=== PATIENT | male | born 2000 | race Caucasian/White ===

== ENCOUNTER 2023-06-21 18:23 | Emergency (ER) | payer OTHER, SELFPAY ==
[2023-06-21 18:42] VITALS: BP 121/68; PULSE 95; TEMP 37.1; O2SAT 100; BMI 27.7
--- NOTE | 2023-06-21 19:38 | CT_ITS ---
The [address] [address] Patient Name: AURE MCCARTHY MRN: [id number] date: 2000 Sex: M Assigned Patient Location: ER Current Patient Location: Accession/Order Number: [id number] Exam Date: 06/21/2023 20:30 Report Date: 06/21/2023 21:19 At the request of: EUGENE SIMPSON Procedure: CT soft tissue neck w con EXAM: CT soft tissue neck w con HISTORY: peritonsillar abscess COMPARISON: None. TECHNIQUE: IV contrast enhanced CT imaging of the neck. This CT exam was performed using one or more of the following dose reduction techniques: Automated exposure control, adjustment of the mA and/or KV according to patient size, or use of iterative reconstruction technique. Unless otherwise stated, incidental findings do not require dedicated follow-up imaging. FINDINGS: There is asymmetric enlargement and hyperemia of the right palatine tonsil with a 12 mm round peritonsillar abscess. There is mass effect upon the airway at this level but the airway remains patent. The submandibular and parotid glands are symmetric bilaterally. The thyroid is homogeneous. Except for a small subcentimeter nodule in the left lobe measuring 7 mm and one in the lateral right lobe measuring 5 mm. The lung apices are clear. The bones are intact without acute abnormality. CT/CT soft tissue neck w con IMPRESSION: 1. Acute right palatine tonsillitis with a small peritonsillar abscess. Electronically authenticated by: THERESE JOHNSON Date: 06/21/2023 21:19
--- NOTE | 2023-06-21 19:40 | ED_ITS ---
HPI HPI - General Adult General Chief complaint: Upper Respiratory Infection Stated complaint: SORE THROAT, POSS ABCESS Time Seen by Provider: 06/21/23 19:22 Source: patient Mode of arrival: walk-in History of Present Illness HPI narrative: Patient is a 23-year-old male with no other major medical history presents to the ER for possible peritonsillar abscess. Patient states he had a sore throat last week which improved but in the last 2 days has become more painful. He reports swelling and pain on the right side of the jaw and throat. He is able to drink fluids today, he denies any shortness of breath. He has had no fevers or vomiting. He has not eaten anything today due to pain. He went to urgent care prior to arrival and was instructed to come to the ER to rule out a peritonsillar abscess. No medications given. He states he does have a history of recurrent strep infections/tonsillitis. No previous surgeries for his tonsils. Related Data Previous Rx's ?Medication ?Instructions ?Recorded clindamycin HCl 150 mg capsule 300 mg (2 x 150 mg) PO Q6H 10 days 06/21/23 #80 caps dexamethasone 4 mg tablet 4 mg PO BID 5 days #10 tabs 06/21/23 hydrocodone 5 mg-acetaminophen 325 1 tab PO Q6H PRN pain 2 days #8 06/21/23 mg tablet tabs metronidazole 500 mg tablet 500 mg PO Q12H 10 days #20 tabs 06/21/23 ondansetron 4 mg disintegrating 4 mg PO Q6H PRN nausea and 06/21/23 tablet vomiting #12 tabs Allergies Allergy/AdvReac Type Severity Reaction Status Date / Time No Known Drug Allergies Allergy Verified 06/21/23 18:48 Opioid HPI Opioid Management Most Recent Opioid Data: Last ED Pain Assessment 06/21/23 20:04 Review of Systems ROS Constitutional Denies: fever or chills Ears, nose, mouth, and throat Reports: throat pain, throat swelling and difficulty swallowing; Denies: nasal congestion Cardiovascular Denies: chest pain Respiratory Denies: shortness of breath or cough Gastrointestinal Denies: abdominal pain, nausea or vomiting Musculoskeletal Denies: back pain Integumentary/Breast Denies: rash Hematologic/Lymphatic Denies: easy bruising or easy bleeding Exam Narrative Exam Narrative: Gen.: Awake, alert, in no distress Head: Normocephalic, atraumatic ENT: Moist mucous membranes, Uvula is midline with airway widely open and patent. Right tonsil is asymmetrically swollen, no exudate noted. No trismus or drooling. Clear speech. Respiratory: No respiratory distress, lungs clear bilaterally; No wheezing or rhonchi Cardio: Regular rate and rhythm Extremities: Moves extremities equally Psych: Normal mood and affect Neuro: No focal neuro deficit Skin: Warm, dry, intact Constitutional Vital Signs, click to edit/add: Last Vital Signs Temp 98.8 F 06/21/23 18:42 Pulse 64 06/21/23 21:51 Resp 16 06/21/23 21:51 BP 113/68 06/21/23 21:51 Pulse Ox 100 06/21/23 21:51 O2 Del Method Room Air 06/21/23 21:51 Course Vital Signs Vital signs: Vital Signs Temperature 98.8 F 06/21/23 18:42 Pulse Rate 95 H 06/21/23 18:42 Respiratory Rate 16 06/21/23 18:42 Blood Pressure 121/68 06/21/23 18:42 Pulse Oximetry 100 06/21/23 18:42 Oxygen Delivery Method Room Air 06/21/23 18:42 Temperature 98.8 F 06/21/23 18:42 Pulse Rate 64 06/21/23 21:51 Respiratory Rate 06/21/23 21:51 Blood Pressure 113/68 06/21/23 21:51 Pulse Oximetry 100 06/21/23 21:51 Oxygen Delivery Method Room Air 06/21/23 21:51 Medical Decision Making MDM Narrative Medical decision making narrative: IV was established, labs drawn and the patient has mild leukocytosis and a strep positive. He was treated with IV clindamycin, IV Decadron with improvement and on reevaluation by attending physician, patient reports that the swelling in the right tonsil has gone down, he is speaking and breathing easily with airway widely open and patent, uvula continues to be midline. CT of The soft tissue of the neck shows the patient has a 1.2 cm right peritonsillar abscess. I discussed this with Dr. Rinaldi for ENT in [place], he will see the patient as soon as possible in the office, patient was instructed to call the office tomorrow morning. Patient will be placed on clindamycin and Flagyl was added at Dr. Rinaldi request. Decadron, clindamycin, Flagyl, [place] given for home. Any ruiz is resting comfortably and eager for discharge on reevaluation. Return to the ER if symptoms change or worsen. Medical Records Medical records reviewed: Yes I reviewed the patient's medical records Lab Data Lab results reviewed: Yes I reviewed the patient's lab results Labs: Lab Results 06/21/23 06/21/23 Range/Units 19:46 19:50 WBC 14.1 H (4.0-11.0) 10^3/uL RBC 4.76 (4.70-6.10) 10^6/uL Hgb 13.4 L (14.0-18.0) g/dL Hct 40.8 L (42.0-54.0) % MCV 85.7 (80.0-94.0) fL MCH 28.2 (25.9-34.0) pg MCHC 32.8 (29.9-35.2) g/dL RDW 12.3 (11.0-15.0) % Plt Count 317 (150-450) 10^3/uL MPV 10.1 (9.5-13.5) fL Neut % (Auto) 77.9 H (43.0-75.0) % Lymph % (Auto) 15.0 L (20.5-60.0) % [place] % (Auto) 5.8 (1.7-12.0) % Eos % (Auto) 0.6 L (0.9-7.0) % Baso % (Auto) 0.4 (0.2-2.0) % Neut # (Auto) 11.0 H (1.4-6.5) 10^3/uL Lymph # (Auto) 2.1 (1.2-3.8) 10^3/uL [place] # (Auto) 0.8 (0.3-0.8) 10^3/uL Eos # (Auto) 0.1 (0.0-0.7) 10^3/uL Baso # (Auto) 0.1 (0.0-0.1) 10^3/uL Abs Immat Gran (auto) 0.04 H (0.00-0.03) 10^3/uL Imm/Tot Granulo (auto) 0.3 (0.0-0.5) % Sodium 139 (136-145) mmol/L Potassium 3.6 (3.5-5.1) mmol/L Chloride 102 (98-107) mmol/L Carbon Dioxide 31.0 (21.0-32.0) mmol/L Anion Gap 9.6 BUN 17.0 (7.0-18.0) mg/dL Creatinine 1.19 (0.70-1.30) mg/dL Est GFR ( Amer) >60 (>=60) Est GFR (Non-Af Amer) >60 (>=60) BUN/Creatinine Ratio 14.3 Glucose 86 (74-106) mg/dL Calcium 8.8 (8.5-10.1) mg/dL Monoscreen Negative (NEGATIVE) Streptococcus Screen Positive A Imaging Data CT scan - head: Attestation: I have reviewed the pertinent imaging results. Radiologist's impression: ITS Impressions Soft Tissue Neck CT 06/21/23 19:38 IMPRESSION: 1. Acute right palatine tonsillitis with a small peritonsillar abscess. Electronically authenticated by: THERESE JOHNSON Date: 06/21/2023 21:19 Discharge Plan Discharge Stand Alone Forms: Portal Instructions Chief Complaint: Upper Respiratory Infection Clinical Impression: Peritonsillar abscess Patient Disposition: Home, Self-Care Time of Disposition Decision: 22:10 Condition: Good Prescriptions / Home Meds: New hydrocodone-acetaminophen 5-325 mg tablet 1 tab PO Q6H PRN (Reason: pain) 2 Days Qty: 8 0RF Rx Instructions: DX: J36 clindamycin HCl 150 mg capsule 300 mg PO Q6H 10 Days Qty: 80 0RF metronidazole 500 mg tablet 500 mg PO Q12H 10 Days Qty: 20 0RF dexamethasone 4 mg tablet 4 mg PO BID 5 Days Qty: 10 0RF ondansetron 4 mg tablet,disintegrating 4 mg PO Q6H PRN (Reason: nausea and vomiting) Qty: 12 0RF Print Language: Italian Instructions: Peritonsillar Abscess (ED) Referrals: KIMBER RINALDI [Physician] - 06/22/23 Physician,Non-Staff, [Primary Care Provider] - 1 week Discharge Date/Time: 06/21/23 22:25
[2023-06-21 20:09] LABS: Basophils Absolute Auto 0.1 10^3/uL (0.0-0.1); Basophils Percent Auto 0.4 % (0.2-2.0); Eosinophils Absolute Auto 0.1 10^3/uL (0.0-0.7); Eosinophils Percent Auto 0.6 % (0.9-7.0); Hematocrit 40.8 % (42.0-54.0); Hemoglobin 13.4 g/dL (14.0-18.0); Immature Granulocytes Abs Auto 0.04 10^3/uL (0.00-0.03); Immature Granulocytes Pct Auto 0.3 % (0.0-0.5); Lymphocytes Absolute Auto 2.1 10^3/uL (1.2-3.8); Mean Corpuscular HGB Conc 32.8 g/dL (29.9-35.2); Mean Corpuscular Hemoglobin 28.2 pg (25.9-34.0); Mean Corpuscular Volume 85.7 fL (80.0-94.0); Mean Platelet Volume 10.1 fL (9.5-13.5); Monocytes Absolute Auto 0.8 10^3/uL (0.3-0.8); Monocytes Percent Auto 5.8 % (1.7-12.0); Neutrophils Percent Auto 77.9 % (43.0-75.0); Platelet Count 317 10^3/uL (150-450); Red Blood Count 4.76 10^6/uL (4.70-6.10); Red Cell Distribution Width 12.3 % (11.0-15.0); White Blood Count 14.1 10^3/uL (4.0-11.0)
[2023-06-21] MEDS: DEXAMETHASONE SOD PHOS 10 MG/ML VIAL IV (20:13)
[2023-06-21] MEDS: CLINDAMYCIN PHOSPHATE/D5W 900 MG/50 ML PIGGYBACK 100 MG IV (20:14)
[2023-06-21 20:17] LABS: Anion Gap 9.6; BUN Creatinine Ratio 14.3; Calcium 8.8 mg/dL (8.5-10.1); Chloride 102 mmol/L (98-107); Estimated GFR (African America >60 (>=60); Estimated GFR (Non-African Ame >60 (>=60); Glucose 86 mg/dL (74-106); Potassium 3.6 mmol/L (3.5-5.1); Sodium 139 mmol/L (136-145)
[2023-06-21 20:21] LABS: Mono Screen NEGATIVE (NEGATIVE)
[2023-06-21 20:26] LABS: Internal Control Within Normal Limits; Strep A Antigen Screen Positive
[2023-06-21 21:51] VITALS: BP 113/68; PULSE 64; O2SAT 100
[2023-06-21] MEDS: METRONIDAZOLE 250 MG TABLET 500 MG PO (22:22)
== END 2023-06-21 22:25 | disposition home or self-care (01) ==
PROVIDERS: Physician Assistant; Emergency Provider Emergency Medicine
DX: J36 Peritonsillar abscess (principal); B95.5 Unspecified streptococcus as the cause of diseases classified elsewhere
CPT/HCPCS: 36415; 70491; 80048; 85025; 86308; 87880; 96365; 96375; 99285; J1100; Q9967